=== PATIENT | male | born 1940 | race Caucasian/White ===

== ENCOUNTER 2024-05-23 16:00 | Outpatient (CLI) | payer MEDICARE | END 2024-05-23 16:01 | disposition home or self-care (01) | LOC: CSHSLEEP 16:00 | PROVIDERS: ATTEND Nurse Practitioner | DX: G47.33 Obstructive sleep apnea (adult) (pediatric) (principal); G47.52 REM sleep behavior disorder; G25.89 Other specified extrapyramidal and movement disorders; G47.61 Periodic limb movement disorder; R06.83 Snoring | CPT/HCPCS: 95810 ==